=== PATIENT | female | born 1950 | race Caucasian/White ===

== ENCOUNTER 2020-08-19 06:28 | Day surgery (SDC) | payer MEDICARE, OTHER ==
[~2020-08-19 06:28] MED LIST: DORZOLAMIDE HCL 2%/TIMOLOL MALEAT 0.5% OPH SOLN 10 ML OD PRN; KETOROLAC TROMETHAMINE 0.45% 4 DROP/0.4 ML DROPERETTE OD PRN
[2020-08-19] MEDS: TROPICAMIDE 1% OPH SOLN 15 ML OD PRN ×3 (06:53→07:06)
[2020-08-19] MEDS: TETRACAINE HCL 0.5% OPH SOLN 4 ML OD PRN ×4 (06:53→07:35)
[2020-08-19] MEDS: CYCLOPENTOLATE 0.2%/PHENYLEPHRINE 1% OPH SOLN 2 ML OD PRN ×3 (06:53→07:06)
[2020-08-19] MEDS: BESIFLOXACIN HCL 0.6% OPH SUSP 5 ML BOTTLE OD PRN ×3 (06:53→08:00)
[2020-08-19] MEDS ORDERED: FENTANYL CITRATE INJ/PF 100 MCG/2 ML AMPUL ONE (07:05)
[2020-08-19] MEDS ORDERED: MIDAZOLAM 2 MG/2 ML INJ ONE (07:05)
[2020-08-19] MEDS ORDERED: EPINEPHRINE INJ/PF 1 MG/1 ML AMPULE ONE (07:09)
[2020-08-19] MEDS ORDERED: CHONDR SU A NA/HYALUR INTRAOC KIT (SURGICARE) ONE (07:10)
[2020-08-19] MEDS ORDERED: LIDOCAINE 1%/PHENYLEPHRINE 1.5% 1 ML VIAL ONE (07:10)
[2020-08-19] MEDS: PREDNISOLONE ACETATE 1% OPH SUSP 5 ML OD PRN ×2 (07:59→08:00)
--- NOTE | 2020-09-03 06:44 | Operative Report ---
Operative Report[facility] Operative Report: DATE OF SURGERY: 08/19/2020 PREOPERATIVE DIAGNOSIS: Cataract, right eye POSTOPERATIVE DIAGNOSIS: Cataract, right eye OPERATION: Cataract extraction with insertion of an IOL of the right eye. Intraocular Lens Model: [19.5 Z CB 00] patient underwent surgery for difficulty driving at night SURGEON: Haider Dueñas MD ANESTHESIA: Topical PROCEDURE: After obtaining appropriate consent, the patient's right eye was prepped and draped in a sterile fashion as well as the surgeon in the sterile manner and cataract surgery was started. First a paracentesis blade was used to make a side-port incision. Viscoelastic was used to inflate the anterior chamber. Next a 2.4 mm incision was made with a 2.4 mm blade, clear corneal temporarily. A continuous capsulorrhexis was made using a cystotome and Utrata forceps. Following this hydrodissection was carried out to make the sean fully loose and mobile and it was rotated. Following this, a divide and conquer technique was used to phacoemulsify the sean. The remaining cortex was removed with an irrigation/aspiration. Provisc was instilled into the capsular bag to inflate the bag. The intraocular lens was placed. The remaining viscoelastic material was removed with irrigation/aspiration. Following this, the incision was found to be watertight. Besivance and Cosopt was instilled into the eye and a protective shield was placed over the eye. The patient was reurned to the postoperative recovery in a stable condition.
== END 2020-08-19 08:31 | disposition home or self-care (01) ==
LOC: SC 06:28
PROVIDERS: ATTEND Internal Medicine
DX: H25.11 Age-related nuclear cataract, right eye (principal); H35.3111 Nonexudative age-related macular degeneration, right eye, early dry stage; H43.813 Vitreous degeneration, bilateral; H31.093 Other chorioretinal scars, bilateral; Z87.891 Personal history of nicotine dependence
CPT/HCPCS: 66984; 00142; V2632; J2250; J3490 ×2; A9270; J0171; J3010; 142

== ENCOUNTER 2020-09-09 07:20 | Day surgery (SDC) | payer MEDICARE, OTHER ==
[~2020-09-09 07:20] MED LIST changes: -DORZOLAMIDE HCL 2%/TIMOLOL MALEAT 0.5% OPH SOLN 10 ML OD PRN; +DORZOLAMIDE HCL 2%/TIMOLOL MALEAT 0.5% OPH SOLN 10 ML OS PRN; -KETOROLAC TROMETHAMINE 0.45% 4 DROP/0.4 ML DROPERETTE OD PRN; +KETOROLAC TROMETHAMINE 0.45% 4 DROP/0.4 ML DROPERETTE OS PRN; +LIDOCAINE 3.5% OPH GEL/PF 1 ML/TUBE OS PRN; +PREDNISOLONE ACETATE 1% OPH SUSP 5 ML OS PRN
[2020-09-09] MEDS ORDERED: EPINEPHRINE INJ/PF 1 MG/1 ML AMPULE ONE (07:22)
[2020-09-09] MEDS ORDERED: LIDOCAINE 1%/PHENYLEPHRINE 1.5% 1 ML VIAL ONE (07:22)
[2020-09-09] MEDS ORDERED: CHONDR SU A NA/HYALUR INTRAOC KIT (SURGICARE) ONE (07:22)
[2020-09-09] MEDS: TETRACAINE HCL 0.5% OPH SOLN 4 ML OS PRN ×3 (07:57→08:23)
[2020-09-09] MEDS: TROPICAMIDE 1% OPH SOLN 15 ML OS PRN ×3 (07:57→08:20)
[2020-09-09] MEDS: CYCLOPENTOLATE 0.2%/PHENYLEPHRINE 1% OPH SOLN 2 ML OS PRN ×5 (07:57→08:47)
[2020-09-09] MEDS: BESIFLOXACIN HCL 0.6% OPH SUSP 5 ML BOTTLE OS PRN ×4 (07:57→08:47)
[2020-09-09] MEDS ORDERED: MIDAZOLAM 2 MG/2 ML INJ ONE ×2 (08:14→08:20)
[2020-09-09] MEDS ORDERED: FENTANYL CITRATE INJ/PF 100 MCG/2 ML AMPUL ONE (08:15)
--- NOTE | 2020-09-09 11:59 | Operative Report ---
Operative Report[facility] Operative Report: DATE OF SURGERY: 09/09/20 PREOPERATIVE DIAGNOSIS: Cataract, left eye, Pupil Miosis POSTOPERATIVE DIAGNOSIS: Cataract, left eye, Pupil miosis OPERATION: Complex Cataract extraction with insertion of an IOL of the left eye and use of a maluygan ring due to pupil dilation of less than 4mm. Intraocular Lens Model: [17.5 Z CB 00] Underwent surgery for difficulty reading SURGEON: Haider Dueñas MD ANESTHESIA: Topical PROCEDURE: After obtaining appropriate consent, the patient's left eye was prepped and draped in a sterile fashion as well as the surgeon in the sterile manner and cataract surgery was started. First a paracentesis blade was used to make a side-port incision. Viscoelastic was used to inflate the anterior chamber. Next a 2.4 mm incision was made with a 2.4 mm blade, clear corneal temporarily. A continuous capsulorrhexis was made using a cystotome and Utrata forceps. Following this hydrodissection was carried out to make the lens fully loose and mobile and it was rotated freely. Following this, a divide and conquer technique was used to phacoemulsify the lens.. The remaining cortex was removed with an irrigation/aspiration. Provisc was instilled into the capsular bag to inflate the bag. The intraocular lens was placed. The remaining viscoelastic material was removed with irrigation/aspiration. Following this, the incision was found to be watertight. Prior to making the capsulorhexis a maluygan ring was inserted due to poor pupillary dilation. This was removed at the end of the case. Besivance and Cosopt was instilled into the eye and a protective shield was placed over the eye. The patient was returned to the postoperative recovery in a stable condition.
--- OUTSIDE RECORDS SUMMARY | 2020-09-10 14:56 | XMS REPORT ---
:1950 Author Organization [facility] Address [facility] [address] [place] [id number] Care Team Providers Name Role Phone Dunia Youssef Unavailable Unavailable Allergies, Adverse Reactions, Alerts This patient has no known allergies or adverse reactions. Medications Ordered Filled Start Stop Current Ordering Indication Dosage Frequency Signature Comments Components Medication Medication Date Date Medication? Clinician (SIG) Name Name Gentamicin Yes Pantera Moody 4{Nisha Gentamici n IM Sulfate 40 9-15 Whitesides liter} Sulfate 4 0 MG/ML 00:00: MG/ML Injection 00 Injection Solution Solution 4 Milliliter once for 1 days Quantity: 4 {Millilite r} Refills: 0 Ordered: 0 Adarsh PANCHAL, Pantera W Start : 0Active Comments: IM Gentamicin Yes 4{Solut Gentamicin I M Sulfate 40 9-15 ion} Sulfate 40 MG/ML 00:00: MG/ML Injection 00 Injection Solution Solution 4 once (40 MG/ML) Start : 0Active Comments: IM levoFLOXaci 2019- No 750{mg} QD levoFLOXac Qty: 5 n 750 MG 05-2704 in 750 MG Oral Tablet 00:00: 00:00 Oral 00 :00 Tablet 750 mg daily (750 MG) Start : 0 End : 01-Jun-2020 Active Comments: Qty: 5 Ondansetron 2020- No 4{mg} Ondansetro Qt y: 20 4 MG Oral 05-23 08-02 n 4 MG Tablet 00:00: 00:00 Oral Disintegrat 00 :00 Tablet ing Disintegra ting 4 mg (4 MG) Start : 0 End : 30-May-2020 Active Comments: Qty: 20 Cefdinir 2020-0 2020- No 300{mg} Q0.5D Cefdinir Qty: 14 300 MG Oral 05-23 08- 300 MG Capsule 00:00: 00:00 Oral 00 :00 Capsule 300 mg two times daily (300 MG) Start : 0 End : 30-May-2020 Active Comments: Qty: 14 Aspirin 81 No Aspirin 81 MG Oral MG Oral Tablet Tablet (81 MG) Active Vitamin C Yes Vitamin C 1000 MG 1000 MG Oral Tablet Oral Tablet (1000 MG) Active Vitamin D Yes Vitamin D 1000 UNIT 1000 UNIT Oral Tablet Oral Tablet (1000 UNIT) Active Nitrofurant No Nitrofuran oin toin Macrocrysta Macrocryst l 100 MG al 100 MG Oral Oral Capsule Capsule TWIce a day (100 MG) Active Phenazopyri No 100{mg} Phenazopyr dine HCl idine HCl 100 MG Oral 100 MG Tablet Oral Tablet 100 mg (100 MG) Active Cipro 500 No 1 Q12H Cipro 500 mg tablet mg tablet Take 1 Take 1 tablet tablet every 12 every 12 hours by hours by oral route oral route for 7 days. for 7 days. 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 Reflux Reflux Problem Active Keeter, esophagitis esophagitis Dunia ESBL ESBL Problem Active Keeter, (extended (extended Dunia spectrum spectrum beta-lactam beta-lactam ase) ase) producing producing bacteria bacteria infection infection UTI UTI Problem Active Keeter, (urinary (urinary Dunia tract tract infection) infection) Procedures Procedure Date / Time Performed Performing Clinician Vivek alejandro Bilateral Mastectomy 2007-10-29 00:00:00 BREAST REMOVAL FOR BREAST CANCER Keeter, Dunia BILOATERAL [facility] 2007 Colonoscopy, Screening Keeter Dunia CT hematuria protocol 2016, [facility] Mikael [facility] Flu Vaccine Keeter, Dunia in office fulgeration small bladder Keeter, Chuck miranda lesions with NO--7/29/19 multiple TURBT--in [place] [id number] Mikael, Dunia Pneumovax KeeterDunia renal ultrasound, 09/2017, [place] Dunia Youssef [place] surveillance cystoscopy [facility]rology [facility] see office notes 03/2018 and following Colonoscopy, Screening CHAMPAGNE, JR Flu Vaccine CHAMPAGNE, JR Pneumovax CHAMPAGNE, JR Results Test Description Test Time Test Comments Text Results Atomic Results Result Comments Lipid 1996 panel - Serum or Plasma 2020-03-26 00:00:00 Test Item Value Reference Range Comments Cholesterol [Mass/volume] in Serum or Plasma (test code = 252 mg /dL <200 2093-3) Triglyceride [Mass/volume] in Serum or Plasma by calculation 115 mg/dL <150 (test code = 23293-2) Cholesterol in HDL [Mass/volume] in Serum or Plasma (test code 5 0 mg/dL >39 = 5-9) Cholesterol.total/Cholesterol.in HDL [Mass ratio] in Serum o r 5.04 ratio 0.00-4.44 Plasma (test code = 9830-1) Cholesterol non HDL [Mass/volume] in Serum or Plasma (test 202 m g/dL <130 code = 18199-3) Cholesterol in LDL [Mass/volume] in Serum or Plasma by 179 mg/dL <130 calculation (test code = 21713-2) Cholesterol in LDL/Cholesterol in HDL [Mass Ratio] in Serum or 3 .6 ratio <3.3 Plasma (test code = 19335-3) CBC W Auto Differential panel - [id number] 00:00:00 Test Item Value Reference Range Comments Leukocytes [#/volume] in Blood by Automated count 6.3 K/uL 3.8-11.5 (test code = 6690-2) Erythrocytes [#/volume] in Blood by Automated 4.62 M/mm3 3. 60-5.30 count (test code = 789-8) Hemoglobin [Mass/volume] in Blood (test code = 13.5 gm/dL 1 1.5-15.5 718-7) Hematocrit [Volume Fraction] of Blood by 40.1 % 35.2-46 .4 Automated count (test code = 4544-3) MCV [Entitic volume] by Automated count (test 86.8 fL 79 .0-99.0 code = 787-2) MCH [Entitic mass] by Automated count (test code 29.2 pg 26.9-35.0 = 785-6) MCHC [Mass/volume] by Automated count (test code 33.7 g/dL 30.4-34.8 = 786-4) Erythrocyte distribution width [Entitic volume] 39.6 fL 38.6-53.8 (test code = 67229-2) Platelets [#/volume] in Blood by Automated count 451 K/cumm 137-397 (test code = 777-3) Neutrophils [#/volume] in Blood by Automated 64.8 % 41. 0-77.0 count (test code = 751-8) Lymphocytes/100 leukocytes in Blood by Automated 23.8 % 14.0-48.0 count (test code = 736-9) Monocytes/100 leukocytes in Blood by Automated 9.1 % 4 .0-13.0 count (test code = 5905-5) Eosinophils/100 leukocytes in Blood by Automated 1.3 % 0.0-8.0 count (test code = 713-8) Basophils/100 leukocytes in Blood by Automated 0.5 % 0 .0-1.5 count (test code = 706-2) Immature granulocytes/100 leukocytes in Blood by 0.5 % 0.0-1.0 Automated count (test code = 29421-8) Comprehensive metabolic 2000 panel - Serum or [id number] 00:00:00 Test Item Value Reference Range Comments Sodium [Moles/volume] in Serum or Plasma (test 138 mEq/L 1 35-145 code = 2951-2) Potassium [Moles/volume] in Serum or Plasma (test 4.5 mEq/L 3.5-5.3 code = 2823-3) Chloride [Moles/volume] in Serum or Plasma (test 99 mEq/L 97-108 code = 2075-0) Carbon dioxide, total [Moles/volume] in Serum or 27 mEq/L 22-32 Plasma (test code = 8-9) Glucose [Mass/volume] in Serum or Plasma (test 105 mg/dL 6 5-99 code = 2345-7) Urea nitrogen [Mass/volume] in Serum or Plasma 11 mg/dL 8 -23 (test code = 3094-0) Creatinine [Mass/volume] in Serum or Plasma (test 0.82 mg/dL 0.50-1.00 code = 2160-0) Calcium [Mass/volume] in Serum or Plasma (test 9.7 mg/dL 8 .6-10.4 code = 58308-6) Protein [Mass/volume] in Serum or Plasma (test 7.1 g/dL 6 .0-8.3 code = 2885-2) Albumin [Mass/volume] in Serum or Plasma (test 4.3 g/dL 3 .5-5.3 code = 1751-7) Alkaline phosphatase [Enzymatic activity/volume] 50 IU/L 35-121 in Serum or Plasma (test code = 6768-6) Alanine aminotransferase [Enzymatic 10 IU/L <5-47 activity/volume] in Serum or Plasma by No addition of P-5'-P (test code = 1744-2) Aspartate aminotransferase [Enzymatic 13 IU/L <5-40 activity/volume] in Serum or Plasma (test code = 1920-8) Bilirubin.total [Mass/volume] in Serum or Plasma 0.3 mg/dL <0.2-1.2 (test code = 1975-2) Albumin/Globulin [Mass Ratio] in Serum or Plasma 1.5 mg/dL 1.1-2.5 (test code = 1759-0) Glomerular filtration rate/1.73 sq M.predicted [Volume Rate/Area] in Serum, Plasma or [id number] 00:00:00 Test Item Value Reference Range Comments Glomerular filtration rate/1.73 sq 84 mL/min/1.73m2 >59 M.predicted among blacks [Volume Rate/Area] in Serum, Plasma or Blood by Creatinine-based formula (CKD-EPI) (test code = 89933-5) Glomerular filtration rate/1.73 sq 72 mL/min/1.73m2 >59 M.predicted among non-blacks [Volume Rate/Area] in Serum, Plasma or Blood by Creatinine-based formula (CKD-EPI) (test code = 44358-5) urinalysis, [id number] 00:00:00 Test Item Value Reference Range Comments Type of Urine collection method (test code = clean catch 9194-2) Leukocytes [#/area] in Urine sediment by 50-100 0-2 Microscopy high power field (test code = 5821-4) Erythrocytes [#/area] in Urine sediment by 0-2 0-2 Microscopy high power field (test code = 31945-9) Epithelial cells [#/area] in Urine sediment by 0-2 0 -2 Automated count (test code = 72446-0) Bacteria [Presence] in Urine sediment by Light 2+ n one seen microscopy (test code = 90672-8) urine casts (test code = urine casts) 0-2 hyaline 0-2 hyalin e Bacteria identified in Urine by [id number] 00:00:00 Test Item Value Reference Range Comments Specimen source identified (test urine - cc code = 65838-8) Bacteria identified in Urine by see below Culture (test code = 630-4) escherichia coli (test code = >100,000 cfu/mL escherichia escherichia coli) coli Bacterial susceptibility panel see below by Minimum inhibitory concentration (JONAH) (test code = 73160-6) urinalysis, [id number] 00:00:00 Test Item Value Reference Range Comments Type of Urine collection method (test code = clean catch 9194-2) Leukocytes [#/area] in Urine sediment by 50-100 0-2 Microscopy high power field (test code = 5821-4) Erythrocytes [#/area] in Urine sediment by 0-2 0-2 Microscopy high power field (test code = 86290-5) Epithelial cells [#/area] in Urine sediment by 0-2 0 -2 Automated count (test code = 48313-0) Bacteria [Presence] in Urine sediment by Light 2+ n one seen microscopy (test code = 67772-0) urine casts (test code = urine casts) 0-2 hyaline 0-2 hyalin e Bacteria identified in Urine by [id number] 00:00:00 Test Item Value Reference Range Comments Specimen source identified (test urine - cc code = 86863-5) Bacteria identified in Urine by see below Culture (test code = 630-4) escherichia coli (test code = >100,000 cfu/mL escherichia escherichia coli) coli Bacterial susceptibility panel see below by Minimum inhibitory concentration (JONAH) (test code = 49068-7) Urinalysis macro (dipstick) panel - [id number] 08:44:00 Test Item Value Reference Range Comments leukocytes (test code = leukocytes) neg nitrite (test code = nitrite) large urobilinogen (test code = urobilinogen) 0.2 protein (test code = protein) trace pH (test code = pH) 6.0 blood (test code = blood) mod specific gravity (test code = specific gravity) 1.005 ketone (test code = ketone) neg bilirubin (test code = bilirubin) neg glucose (test code = glucose) neg odor (test code = odor) yes Urinalysis macro (dipstick) panel - [id number] 08:44:00 Test Item Value Reference Range Comments leukocytes (test code = leukocytes) neg nitrite (test code = nitrite) large urobilinogen (test code = urobilinogen) 0.2 protein (test code = protein) trace pH (test code = pH) 6.0 blood (test code = blood) mod specific gravity (test code = specific gravity) 1.005 ketone (test code = ketone) neg bilirubin (test code = bilirubin) neg glucose (test code = glucose) neg odor (test code = odor) yes Assessments Condition Name Status Diagnosis Date Treating Clinici an Adult health examination Active 2020-04-01 16:19:15 History of urinary tract infection Active 2020-04-01 16 :17:49 Hyperlipidemia Active 2020-04-01 16:17:56 Thrombocytosis Active 2020-04-01 16:18:03 Recurrent urinary tract infection Active 2020-04-07 18: 07:01 History of malignant neoplasm of breast Active 09:09:44 Screening for cardiovascular system Active 2020-03-25 0 8:52:54 disease Screening for malignant neoplasm of Active 2020-03-25 0 9:10:00 colon Acute urinary tract infection Active 2020-03-15 08:52:1 5 Encounters Start End Encounter Admission Attending Care Care Encounter Date/Time Date/Time Type Type Clinicians Facility Department ID 2020-06-18 2020-07-13 Office Urology Urology [id number] 15:34:32 09:40:09 [facility] [place] 2020-05-19 2020-06-16 Office Urology Urology [id number] 09:58:45 09:13:50 [facility] [place] 2020-04-01 2020-04-01 [facility] [id number] 00:00:00 00:00:00 [facility] [address], Medicine Medicine MD: [address] [facility] [address], [place] [address] , Ph. 2020-03-25 2020-03-25 [facility] [id number] 00:00:00 00:00:00 [facility] 528 Daniel III, Medicine Medicine MD: [address] [facility] [address], [place] [address] , Ph. 2020-03-15 2020-03-15 [facility] [id number] 00:00:00 00:00:00 Nereida [facility] [address] Medicine Medicine Yens , [employer]-C: [address] [facility] [address], [place] [address] , Ph. 2019-11-13 2020-02-20 Office Urology Urology [id number] 09:44:11 10:22:23 [facility] [place] Family History Family Member Diagnosis Comments Start Date Stop Date Unspecified Bladder Cancer Unspecified Prostate Cancer Unspecified Bladder Cancer Unspecified Prostate Cancer Payers Payer Name Policy Type Policy Number Effective Date Expiration D ate MEDICARE PART B CLAIMS OT [employer] Plan of Treatment Planned Activity Planned Date Details Comments Future Scheduled Test [code = ] Future Scheduled Test [code = ] Future Scheduled Test [code = ] Social History Social Habit Start Date Stop Date Comments Alcohol Use: Tobacco Use: Alcohol Use: Tobacco Use: Smoking Status Start Date Stop Date Never Smoker Ex-smoker (finding) Vital Signs Vital Name Observation Time Observation Value Comments Body temperature 2020-06-18 15:43:55 98.2 [degF] Weight 2020-06-18 15:43:55 142 [lb_av] Body height 2020-06-18 15:43:55 67 [in_us] Body mass index (BMI) [Ratio] 2020-06-18 15:43:55 22.24 kg/m2 Body temperature 2020-05-19 10:00:22 98.6 [degF] BP Diastolic 2020-04-01 00:00:00 82 mm[Hg] Height 2020-04-01 00:00:00 67 [in_i] BMI (Body Mass Index) 2020-04-01 00:00:00 23.3 kg/m2 BP Systolic 2020-04-01 00:00:00 132 mm[Hg] Body Weight 2020-04-01 00:00:00 149 [lb_av] Body Weight 2020-03-25 00:00:00 147 [lb_av] BP Diastolic 2020-03-25 00:00:00 72 mm[Hg] Height 2020-03-25 00:00:00 67 [in_i] BMI (Body Mass Index) 2020-03-25 00:00:00 23 kg/m2 BP Systolic 2020-03-25 00:00:00 138 mm[Hg] BMI (Body Mass Index) 2020-03-15 00:00:00 22.7 kg/m2 BP Systolic 2020-03-15 00:00:00 140 mm[Hg] Body Weight 2020-03-15 00:00:00 145 [lb_av] BP Diastolic 2020-03-15 00:00:00 78 mm[Hg] Height 2020-03-15 00:00:00 67 [in_i] Hospital Discharge Instructions NameDatesDeRachel to Access Health Information Online using Patient Portal and [employer] Apps Indication: Counseled by nurse Start: 18-Jun-2020 Instruction Type: Patient EducationNameDatesDetailsHow to Access Health Information Online using Patient Portal and [employer] Apps Indication: Counseled by nurse Start: 19-May-2020 Instruction Type: Patient Education1. Acute urinary tract infection urinalysis, dipstick culture, urine urinalysis, microscopic Cipro 500 mg tablet Discussion Note Issues concerning treatment and diagnosis were discussedwith the patient and/or family member. There are no barriers to understanding the plan of care. Explanation was well-received by the patient and/or family, who then verbalized understanding. If a referral or imaging was ordered pt was instructed to expect contact from the specialist, imaging facility,or our office within 2 weeks and to call here if they have not received a call in this timeframe. Patient was instructed that if symptoms persist RTC. Patient educational handouts: No information available.NameDatesDetailsHow to Access Health Information Online using Patient Portal and [employer] Apps Indic ation: Counseled by nurse Start: 13-Nov-2019 Instruction Type: Patient Education
== END 2020-09-09 09:19 | disposition home or self-care (01) ==
LOC: SC 07:20
PROVIDERS: ATTEND Internal Medicine
DX: H25.12 Age-related nuclear cataract, left eye (principal); H57.03 Miosis; Z96.1 Presence of intraocular lens; Z87.891 Personal history of nicotine dependence
CPT/HCPCS: 66982; V2632; J2250; J3490 ×2; A9270; J0171; J3010